=== PATIENT | male | born 1980 | race Caucasian/White ===

== ENCOUNTER 2018-06-08 18:50 | Emergency (ER) | payer MEDICAID ==
[2018-06-08] MEDS: IBUPROFEN 600 MG TAB PO (20:20)
== END 2018-06-08 20:46 | disposition home or self-care (01) ==
LOC: FTE 18:50
DX: H60.312 Diffuse otitis externa, left ear (principal); R40.2412 Glasgow coma scale score 13-15, at arrival to emergency department
CPT/HCPCS: 99282; Z7502